=== PATIENT | female | born 1965 | race American Indian/Alaskan Native ===

== ENCOUNTER 2017-02-26 07:12 | Day surgery (SDC) | payer BC ==
[2017-02-26 07:33] VITALS: BMI 23.0
[2017-02-26] MEDS ORDERED: Propofol 10 mg/ml Inj (20 ML) ONE (09:08)
[2017-02-26] MEDS ORDERED: Lactated Ringer's 500 ML IV SCH (09:15)
[2017-02-26 09:34] VITALS: TEMP 97.3
[2017-02-26 10:10] VITALS: BP 125/74; PULSE 58; RESP 12; O2SAT 99
== END 2017-02-26 10:40 | disposition home or self-care (01) ==
LOC: C.ENDO 07:12
PROVIDERS: ATTEND Internal Medicine
DX: R13.10 Dysphagia, unspecified (principal)
CPT/HCPCS: 43239; 84703; 88305; 88312; 88313; 88342; J2704; J7120